=== PATIENT | male | born 1930 | race Caucasian/White ===

== ENCOUNTER 2018-06-08 16:57 | Emergency (ER) | payer OTHER, MEDICARE ==
--- NOTE | 2018-06-08 17:06 | PDOC ---
History of Present Illness - General Chief Complaint: Pain Stated Complaint: right rib cage pain s/p tripped and fell x 2 days. Time Seen by Provider: 06/08/18 17:04 History Source: Patient, Family Exam Limitations: No Limitations - History of Present Illness Initial Comments: 06/08/18 17:04 87 year old male with PMH atrial fibrillation on Coumadin, HTN, HLD presented to ED for right sided rib pain s/p fall from standing x2 days ago. Pt stated he took a sleeping pill, tripped and fell, denied prodromal symptoms including chest pain, shortness of breath, lightheadedness. Pt was seen at urgent care, found to have RUQ tenderness, sent to ED for evaluation. Pt denied head injury, LOC, vomiting, neck pain, back pain, abdominal pain, pelvis pain, hip pain, difficulty walking. Allergies: clarithromycin, bacitracin Past History - Past Medical History Allergies/Adverse Reactions: Allergies Allergy/AdvReac Type Severity Reaction Status Date / Time bacitracin Allergy Verified 06/08/18 17:00 clarithromycin AdvReac Verified 06/08/18 17:00 Home Medications: Ambulatory Orders Atorvastatin Ca [Lipitor -] 40 mg PO HS 11/14/14 Dronedarone HCl [Multaq] 400 mg PO BID 11/14/14 Warfarin Sodium [Coumadin] 5 mg PO ASDIR 11/14/14 Warfarin Sodium [Coumadin] 2.5 mg PO ASDIR 06/08/18 Cancer: Yes (BCC) Cardiac Disorders: Yes (Atrial Fibrillation) CVA: Yes (20 years ago) HTN: Yes Hypercholesterolemia: Yes - Surgical History Cardiac Surgery: Yes (Cardiac Ablation) Cholecystectomy: Yes - Suicide/Smoking/Psychosocial Hx Smoking History: Unknown if ever smoked Review of Systems - Review of Systems Able to Perform ROS?: Yes Comments:: 06/08/18 17:05 General: denied fever, chills, night sweats, generalized weakness. HEENT: denied sore throat, rhinorrhea, ear pain. Heart: denied chest pain, palpitations, syncope, diaphoresis. Respiratory: denied shortness of breath, cough, sputum production, hemoptysis. Abdomen: denied abdominal pain, nausea, vomiting, diarrhea, constipation, blood in stool. : denied dysuria, increased urinary frequency, hematuria, urinary incontinence , flank pain. Back: denied back pain. Musculoskeletal: denied joint pain, muscle pain, joint swelling. Neurological: denied headache, dizziness, numbness, tingling, weakness. Skin: denied rash, laceration, abrasion. *Physical Exam - Physical Exam Comments: 06/08/18 17:05 Constitutional: Well-nourished, Well-developed, appearing stated age. HEENT: head is normocephalic, atraumatic. EOMI. PERRLA. Neck: supple. Full ROM. no midline c-spine tenderness. no paraspinal tenderness. Heart: regular rhythm. no murmurs, rubs or gallops. Chest: tenderness to palpation of right lateral chest wall. Lungs: clear to auscultation bilaterally. no crackles, rhonchi or wheezing. no stridor. Abdomen: soft, nontender. normal bowel sounds. no rebound, guarding, masses. Pelvis: limb equal in length. no external rotation. no pelvis tenderness. no hip tenderness. Back: no midline T-spine or L-spine tenderness to palpation. no paraspinal tenderness to palpation. no bruising, no deformities, no step offs. Extremities: Peripheral pulses intact. No lower extremity edema. Neurological: Alert. Oriented x3. CN2-12 intact. 5/5 strength all extremities. Full sensation all extremities and bilateral face. No ataxia. Gait normal. Psych: Follows commands. Answers questions appropriately. ED Treatment Course - LABORATORY CBC & Chemistry Diagram: 06/08/18 18:06 06/08/18 18:06 Medical Decision Making - Medical Decision Making 06/08/18 17:39 87 year old male with above PMH on AC presented to ED for right sided rib pain, sent from urgent care for RUQ tenderness. Family members insistent on checking his liver. Initial Vital Signs Temp Pulse Resp BP Pulse Ox 97.4 F L 53 L 18 153/76 100 06/08/18 16:59 06/08/18 16:59 06/08/18 16:59 06/08/18 16:59 06/08/18 16:59 Afebrile. Mild bradycardia, asymptomatic. No tachypnea. Mild hypertension. No hypoxia on room air. Labs ordered: CBC, CMP, troponin, T/S, PT/PTT/INR Imaging ordered: CT head, CT cervical spine, CT abdomen/pelvis, pelvis XR, CXR, right rib series XR Medications ordered: EKG performed at 06/08/18 18:[address] imaging, stated that he is 100% sure he did not hit his head. 06/08/18 18:42 CBC WBC 4.9 K/mm3 (4.0-10.8) 06/08/18 18:06 RBC 3.73 M/mm3 (4.00-5.60) L 06/08/18 18:06 Hgb 12.8 GM/dl (11.7-16.9) 06/08/18 18:06 Hct 37.3 % (35.4-49) 06/08/18 18:06 MCV 100.0 fl (80-96) H 06/08/18 18:06 MCH 34.2 pg (25.7-33.7) H 06/08/18 18:06 MCHC 34.2 g/dl (32.0-35.9) 06/08/18 18:06 RDW 13.6 % (11.9-15.9) 06/08/18 18:06 Plt Count 143 K/MM3 (134-434) 06/08/18 18:06 MPV 9.5 fl (7.5-11.1) 06/08/18 18:06 Absolute Neuts (auto) 3.2 K/mm3 06/08/18 18:06 Neutrophils % 65.8 % (42.8-82.8) 06/08/18 18:06 Lymphocytes % 17.9 % (8-40) 06/08/18 18:06 Monocytes % 14.1 % (3.8-10.2) H 06/08/18 18:06 Eosinophils % 1.3 % (0-4.5) 06/08/18 18:06 Basophils % 0.9 % (0-2.0) 06/08/18 18:06 CMP Sodium 138 mmol/L (136-145) 06/08/18 18:06 Potassium 4.3 mmol/L (3.5-5.1) 06/08/18 18:06 Chloride 105 mmol/L (98-107) 06/08/18 18:06 Carbon Dioxide 27 mmol/L (21-32) 06/08/18 18:06 Anion Gap 6 MMOL/L (8-16) L 06/08/18 18:06 BUN 25 mg/dl (7-18) H 06/08/18 18:06 Creatinine 1.2 mg/dl (0.55-1.3) 06/08/18 18:06 Creat Clearance w eGFR 57.01 (>60) 06/08/18 18:06 Random Glucose 120 mg/dl (74-106) H 06/08/18 18:06 Calcium 8.7 mg/dl (8.5-10) 06/08/18 18:06 Total Bilirubin 1.3 mg/dl (0.2-1) H 06/08/18 18:06 AST 43 U/L (15-37) H 06/08/18 18:06 ALT 29 U/L (13-61) 06/08/18 18:06 Alkaline Phosphatase 75 U/L (45-117) 06/08/18 18:06 Troponin I < 0.03 ng/ml (0.00-0.05) 06/08/18 18:06 Total Protein 6.9 g/dl (6.4-8.2) 06/08/18 18:06 Albumin 3.5 g/dl (3.4-5.0) 06/08/18 18:06 INR, PTT INR 3.04 (0.82-1.09) H 06/08/18 18:[address] Vásquez's read: sharp angles, no infiltrate, no pleural fluid, no rib fractures. Pelvis XR my and Dr. Vásquez's read: no fracture/dislocation. Rib series right my and Dr. Melara read: no acute fracture. - Pending official reports. Pt reported no abdominal pain, repeat examination soft, nontender to palpation. Pt explained the risk of bleeding is not zero, and to ultimately rule it out he needs a CT scan. Family and pt stated they understood. Pt discharged. Call back placed for daughter Dulce Mack to be called with official XR reports. 06/09/18 07:37 Chest X-ray report: no sign of acute chest process. no gross rib fracture seen. rounded calcification seen just below the diaphragm (right) and this was present before. Rib series report: calcified hepatic mass in the upper portion of the right liver just below hemidiaphragm. no acute rib fracture, pnuemothorax, pleural fluid or atelectasis. *DC/Admit/Observation/Transfer Diagnosis at time of Disposition: History of fall, Rib pain - Discharge Dispostion Disposition: HOME Condition at time of disposition: Stable Decision to Admit order: No - Referrals - Patient Instructions Printed Discharge Instructions: How to Prevent Falls Additional Instructions: Follow up with your primary care doctor in 1-2 days. Take tylenol over the counter for your pain, take as advised on label. Drink lots of fluids, like water, to stay hydrated. Return to the Emergency Department for increasing pain, weakness, numbness, tingling, vomiting, visual changes, chest pain, shortness of breath or any other new, worsening or concerning symptoms. - Post Discharge Activity
[2018-06-08 17:22] VITALS: BP 153/76; PULSE 53; TEMP 97.4; BMI 22.0
--- NOTE | 2018-06-08 17:30 | PDOC ---
Attending Attestation - Resident Resident Name: Karrie Olvera - HPI HPI: 06/10/18 21:13 Pt presents to the Ed after fall two days ago complaining of pleuritic lower right chest and upper abdominal pain. Extensive history as described in resident note. takes coumadin. patient was ambulatory after the fall and has not been complaining of severe pain, however, his son became concerned because he had persistent tenderness in his chest wall. patient is adamant that he did not hit his head. 06/10/18 21:18 - Physicial Exam PE: 06/10/18 21:18 Agree with resident exam. Patient is alert and oriented and in no acute distress. HEENT: no signs of trauma. Lungs: CTA b/l. No chest wall ecchymosis. + mild chest wall tenderness over his R ribs and mild RUQ tenderness. - Medical Decision Making 06/10/18 21:23 Pt presents to the ED for persistent, mild R lower chest wall pain and tenderness after fall. Denies LOC or head trauma. Labs show INR of 3. CXR is negative for pneumothorax or fx. Although he is 4 days out from the injury, given his age and history of coumadin use, Ct head and chest abdomen pelvis were offered to the patient. He and his son, who is a physician, decline. The risks and benefits of Ct scan were discussed at length with the patient. he understands that he must return immediately to the ED for worsening symptoms.
[2018-06-08 18:21] LABS: BASO % 0.9 % (0-2.0); EOS % 1.3 % (0-4.5); HEMATOCRIT 37.3 % (35.4-49); HEMOGLOBIN 12.8 GM/dl (11.7-16.9); LYMPH % 17.9 % (8-40); MCH 34.2 pg (25.7-33.7); MCHC 34.2 g/dl (32.0-35.9); MEAN PLT VOLUME 9.5 fl (7.5-11.1); MONO % 14.1 % (3.8-10.2); NEUT % 65.8 % (42.8-82.8); PLATELET COUNT 143 K/MM3 (134-434); RBC 3.73 M/mm3 (4.00-5.60); RDW 13.6 % (11.9-15.9); WHITE BLOOD COUNT 4.9 K/mm3 (4.0-10.8)
[2018-06-08 18:33] LABS: ALBUMIN 3.5 g/dl (3.4-5.0); ALK PHOS 75 U/L (45-117); ANION GAP 6 MMOL/L (8-16); BILIRUBIN,TOTAL 1.3 mg/dl (0.2-1); BLOOD UREA NITROGEN 25 mg/dl (7-18); CALCIUM 8.7 mg/dl (8.5-10); CHLORIDE 105 mmol/L (98-107); CO2 27 mmol/L (21-32); CREATININE 1.2 mg/dl (0.55-1.3); GLUCOSE,RANDOM 120 mg/dl (74-106); POTASSIUM 4.3 mmol/L (3.5-5.1); SGOT/AST 43 U/L (15-37); SGPT/ALT 29 U/L (13-61); SODIUM 138 mmol/L (136-145); TOT PROT 6.9 g/dl (6.4-8.2)
[2018-06-08 18:39] LABS: INR 3.04 (0.82-1.09); PROTHROMBIN TIME (PATIENT) 33.3 SEC (10.2-13.0)
== END 2018-06-08 19:13 | disposition home or self-care (01) ==
LOC: FER 16:57
DX: R07.81 Pleurodynia (principal); W18.09XA Striking against other object with subsequent fall, initial encounter; Y93.89 Activity, other specified; Y92.89 Other specified places as the place of occurrence of the external cause; I10 Essential (primary) hypertension; E78.5 Hyperlipidemia, unspecified; I48.91 Unspecified atrial fibrillation; Z79.01 Long term (current) use of anticoagulants
CPT/HCPCS: 36415; 71046-TC-FY; 71101-TC-RT-FY; 72170-TC-FY; 80053; 84484; 85025; 85610; 85730; 99282-25